=== PATIENT | male | born 1930 | race Caucasian/White ===

== ENCOUNTER 2021-02-14 12:38 | Inpatient (IN) | payer MEDICARE, MEDICAID ==
[~2021-02-14] VITALS: Ht 170.2 cm; Wt 115.0 kg
[~2021-02-14 12:38] MED LIST: epiNEPHrine 0.1mg/ml 10ml syringe ONE
--- NOTE | 2021-02-14 13:02 | NUR ---
PT WAS PLACED ON CPAP FROM EMS, PLACED ON BIPAP IN ER UPON ARRIVAL, FIO2 100%, PT SAMIR WELL
[2021-02-14 13:07] LABS: ABG BASE EXCESS -0.5 mmol/L (-2.0-2.0); ABG HCO3 23.3 mmol/L (22.0-26.0); ABG OXYGEN SATURATION 96.6 % (94-97); ABG PCO2 (T) 35.6 mmHg (35.0-48.0); ABG PO2 (T) 92.1 mmHg (75.0-100.0); ALLEN'S TEST POSITIVE; FCOHb 0.3 % (0.0-3.9); FMetHb 0.3 % (0.0-1.5); TOTAL HEMOGLOBIN 13.7 G/dl (14.0-18.0)
[2021-02-14 13:19] LABS: BASOPHILS % (AUTO) 0.3 % (0-1); EOSINOPHILS % (AUTO) 0 % (0-6); HEMATOCRIT 39.8 % (42.0-52.0); HEMOGLOBIN 13.2 g/dl (14.0-17.9); LYMPHOCYTES # (AUTO) 0.7 X10'3 (1.1-4.8); LYMPHOCYTES % (AUTO) 6.7 % (21-51); MEAN CORPUSCULAR HEMOGLOBIN 28.3 PG (27.0-31.0); MEAN CORPUSCULAR HGB CONC 33.2 g/dL (33.0-36.5); MEAN CORPUSCULAR VOLUME 85.2 FL (78-98); MEAN PLATELET VOLUME 8.2 FL (7.4-10.4); MONOCYTES % (AUTO) 10.3 % (2-12); NEUTROPHILS # (AUTO) 8.4 X10'3 (1.8-7.7); NEUTROPHILS % (AUTO) 82.7 % (42-75); PLATELET COUNT 149 X10'3 (140-440); RED BLOOD COUNT 4.67 X10'6 (4.70-6.10); RED CELL DISTRIBUTION WIDTH 17.2 % (11.5-14.5); WHITE BLOOD COUNT 10.1 X10'3 (4.5-11.0)
--- NOTE | 2021-02-14 13:41 | NUR ---
: SOTERO BUCHANAN [phone]
[2021-02-14 13:42] LABS: C-REACTIVE PROTEIN 6.87 MG/DL (0.0-0.5); MAGNESIUM 2.5 MG/DL (1.5-2.4)
[2021-02-14 13:50] LABS: D-DIMER 2.26 MG/L FEU (0-0.50); PARTIAL THROMBOPLASTIN TIME 28 SECONDS (22-32)
[2021-02-14] MEDS ORDERED: methylPREDNISolone sod succ 125mg/2ml vial IV ONE (14:00)
[2021-02-14 14:21] LABS: ALANINE AMINOTRANSFERASE 43 U/L (12-78); ALBUMIN 3.2 G/DL (3.4-5.0); ALBUMIN/GLOBULIN RATIO 0.7 (1.1-1.5); ALKALINE PHOSPHATASE 69 IU/L (46-116); ANION GAP 16 (8-16); ASPARTATE AMINO TRANSFERASE 125 U/L (10-37); BLOOD UREA NITROGEN 62 MG/DL (7-18); BUN/CREATININE RATIO 28.6 (5.4-32.0); CALCIUM 8.7 MG/DL (8.5-10.1); CHLORIDE 101 MMOL/L (99-107); CREATININE 2.17 MG/DL (0.60-1.10); GLUCOSE 183 MG/DL (70-104); POTASSIUM 4.1 MMOL/L (3.5-5.1); SODIUM 142 MMOL/L (135-145); TOTAL CARBON DIOXIDE 25.1 MMOL/L (24-32); eGFR 29 ML/MIN
[2021-02-14] MEDS ORDERED: enoxaparin 100mg/ml syringe SUBCUT ONE (14:40)
[2021-02-14] MEDS ORDERED: normal saline 1000ML IV soln IVB ONE (14:45)
[2021-02-14] MEDS ORDERED: enoxaparin 80mg/0.8ml syringe SUBCUT SCH ×2 (15:10→20:00)
[2021-02-14] MEDS ORDERED: ATOR40TA71 PO (15:14)
[2021-02-14] MEDS ORDERED: ALBU8.5H17 IH (15:14)
[2021-02-14] MEDS ORDERED: LOSA25TA41 PO (15:14)
[2021-02-14] MEDS ORDERED: CARV6.253 PO (15:14)
[2021-02-14] MEDS ORDERED: BUDE10.2 INH (15:14)
[2021-02-14] MEDS ORDERED: HYDR-3972 PO (15:14)
[2021-02-14] MEDS ORDERED: FURO40TA4 PO (15:14)
[2021-02-14] MEDS ORDERED: LEVO150T PO (15:14)
[2021-02-14 15:40] LABS: COLOR,URINE YELLOW (Yellow); GLUCOSE, URINE NEGATIVE (Neg); KETONES,URINE NEGATIVE (Neg); NITRITES, URINE NEGATIVE (Neg); OCCULT BLOOD,URINE LARGE (Neg); PROTEIN,URINE 100 mg/dl (Neg); UA COLLECTION TYPE FOLEY CATH
[2021-02-14] MEDS ORDERED: potassium Cl 40MEQ/1/2NS 520ml 520 ML IV PRN ×2 (15:40)
[2021-02-14] MEDS ORDERED: acetaminophen 325mg tablet PO PRN ×2 (15:40)
[2021-02-14] MEDS ORDERED: ondansetron/PF 4mg/2ml inj IV PRN (15:40)
[2021-02-14] MEDS ORDERED: morphine 2 MG/ML inj. syringe IV PRN (15:40)
[2021-02-14] MEDS ORDERED: LIDOcaine 2% 10ml TOPICAL JELLY (Urojet) TP ONE (15:40)
[2021-02-14] MEDS ORDERED: morphine 4 MG/ML inj SYRINge IV PRN (15:40)
[2021-02-14] MEDS ORDERED: potassium Cl 20 mEq SR tablet PO PRN ×2 (15:40)
[2021-02-14] MEDS ORDERED: potassium Cl 40MEQ/250ML bag 270 ML IV PRN ×2 (15:40)
[2021-02-14 15:41] LABS: CLARITY,URINE SLIGHTLY CLOUDY (Clear); LEUKOCYTE ESTERASE ,URINE NEGATIVE (Neg); UROBILINOGEN,URINE 0.2 E.U/dL (0.2-1.0)
[2021-02-14 15:47] LABS: BACTERIA,URINE FEW /HPF (Neg); MUCUS STRANDS NONE SEEN /LPF (Neg); RBC,URINE 0-2 /HPF (0-2); SQUAMOUS EPITHELIAL CELL,UR FEW /LPF (FEW); WBC,URINE 0-4 /HPF (0-4)
[2021-02-14 15:49] LABS: HYALINE CASTS 0-3 /LPF (NEGATIVE)
[2021-02-14] MEDS: normal saline 1000ml 1,000 ML IV SCH ×2 (15:55→19:22)
[2021-02-14 16:01] LABS: ALBUMIN 2.9 G/DL (3.4-5.0); ANION GAP 14 (8-16); BLOOD UREA NITROGEN 60 MG/DL (7-18); BUN/CREATININE RATIO 28.6 (5.4-32.0); CALCIUM 8.3 MG/DL (8.5-10.1); CHLORIDE 103 MMOL/L (99-107); GLUCOSE 173 MG/DL (70-104); POTASSIUM 4.2 MMOL/L (3.5-5.1); SODIUM 143 MMOL/L (135-145); TOTAL CARBON DIOXIDE 25.7 MMOL/L (24-32); eGFR 30 ML/MIN
--- NOTE | 2021-02-14 18:51 | NUR ---
Patient is resting comfortably on gurney, Bipap on. I will continue to monitor.
[2021-02-14] MEDS: dexamethasone inj 6 MG in dextrose 5%-water 100 ML IV SCH (19:20)
[2021-02-14] MEDS: docusate sod 100mg capsule PO SCH (20:00)
[2021-02-14] MEDS ORDERED: enoxaparin 100mg/ml syringe SUBCUT SCH (20:00)
[2021-02-14] MEDS: enoxaparin 80mg/0.8ml syringe SUBCUT SCH (20:18)
[2021-02-14] MEDS: famotidine/PF 10 mg/ml inj IV SCH (20:18)
[2021-02-14] MEDS: sennosides/docusate sodium tablet PO SCH (20:19)
--- NOTE | 2021-02-14 20:19 | NUR ---
Did not give colace of senna po as the patient is on Bipap.
--- NOTE | 2021-02-14 22:42 | NUR ---
Patient sleeping comfortably on juan joserney, I just readjusted his Bipap mask.
[2021-02-15] VITALS (12 sets, daily range): BP systolic 93–129; BP diastolic 51–77
[2021-02-15 01:27] LABS: ALANINE AMINOTRANSFERASE 35 U/L (12-78); ALBUMIN 2.4 G/DL (3.4-5.0); ALBUMIN/GLOBULIN RATIO 0.6 (1.1-1.5); ALKALINE PHOSPHATASE 55 IU/L (46-116); ANION GAP 12 (8-16); ASPARTATE AMINO TRANSFERASE 133 U/L (10-37); BILIRUBIN,TOTAL 0.7 MG/DL (0.1-1.0); BLOOD UREA NITROGEN 61 MG/DL (7-18); BUN/CREATININE RATIO 34.9 (5.4-32.0); CHLORIDE 106 MMOL/L (99-107); CREATININE 1.75 MG/DL (0.60-1.10); GLUCOSE 233 MG/DL (70-104); POTASSIUM 3.9 MMOL/L (3.5-5.1); SODIUM 144 MMOL/L (135-145); TOTAL CARBON DIOXIDE 26.4 MMOL/L (24-32); TOTAL PROTEIN 6.5 G/DL (6.4-8.2); eGFR 37 ML/MIN
[2021-02-15 01:43] LABS: C-REACTIVE PROTEIN 10.28 MG/DL (0.0-0.5); MAGNESIUM 2.4 MG/DL (1.5-2.4); PHOSPHORUS 5.6 MG/DL (2.3-4.5)
[2021-02-15 02:36] LABS: BASOPHILS % (AUTO) 0.2 % (0-1); EOSINOPHILS % (AUTO) 0 % (0-6); HEMATOCRIT 37.4 % (42.0-52.0); HEMOGLOBIN 12.1 g/dl (14.0-17.9); LYMPHOCYTES % (AUTO) 6.5 % (21-51); MEAN CORPUSCULAR HEMOGLOBIN 27.6 PG (27.0-31.0); MEAN CORPUSCULAR HGB CONC 32.4 g/dL (33.0-36.5); MEAN CORPUSCULAR VOLUME 85.2 FL (78-98); MEAN PLATELET VOLUME 8.2 FL (7.4-10.4); MONOCYTES # (AUTO) 0.7 X10'3 (0-0.9); MONOCYTES % (AUTO) 4.4 % (2-12); NEUTROPHILS # (AUTO) 14.1 X10'3 (1.8-7.7); NEUTROPHILS % (AUTO) 88.9 % (42-75); PLATELET COUNT 165 X10'3 (140-440); RED BLOOD COUNT 4.39 X10'6 (4.70-6.10); RED CELL DISTRIBUTION WIDTH 17.3 % (11.5-14.5); WHITE BLOOD COUNT 15.9 X10'3 (4.5-11.0)
[2021-02-15 02:47] LABS: D-DIMER 1.25 MG/L FEU (0-0.50)
--- NOTE | 2021-02-15 03:15 | NUR ---
Dr. Vega came back to me and let me know the patient was under the Critical Care service. I then cld Dr. Sepulveda and advised of Troponin 187, he aknowledged the value and advised no further Troponin's needed.
[2021-02-15] MEDS: docusate sod 100mg capsule PO SCH ×3 (07:23→20:00)
[2021-02-15] MEDS: enoxaparin 80mg/0.8ml syringe SUBCUT SCH ×2 (07:24→20:47)
[2021-02-15] MEDS: dexamethasone inj 6 MG in dextrose 5%-water 100 ML IV SCH ×2 (07:24→20:47)
[2021-02-15] MEDS: famotidine/PF 10 mg/ml inj IV SCH ×2 (07:24→20:47)
[2021-02-15] MEDS: normal saline 1000ml 1,000 ML IV SCH (07:25)
--- NOTE | 2021-02-15 07:36 | NUR ---
Patient failed the PO challange, coughed and gagged on sip of water.
--- NOTE | 2021-02-15 08:53 | NUR ---
Daughter cld and was updated on patient's condition.
--- NOTE | 2021-02-15 11:36 | NUR ---
Noted RN documented "Patient failed the PO challenge, coughed and gagged on sip of water" however pt continues with a regular diet. Recommend BSS with ST to determine appropriateness of PO diet at this time. Pt currently on BiPAP per primer charger. Addendum: 02/15/21 at [address] Amended: Links added.
--- NOTE | 2021-02-15 12:37 | NUR ---
MD notified patient's latest troponin level as well as his HR, which trends from mid 40's to low 60's. No new orders received.
--- NOTE | 2021-02-15 12:38 | NUR ---
MD order for patient to be place off Cipap and started on NC. Patient placed on 15L NC by RT and saturated declined to low 80's. Cipap restarted back at 55% FI02 and he is tolerating well sating at low 90's. Does not appear to be in any distress and is compliant with his mask. Addendum: 02/15/21 at 1538 by Ele Hoover RN Cpap Addendum: 02/15/21 at 1604 by Ele Hoover RN Spoke with patient's daughter Shilpa to give her and update on her father's condition. When inquiring about code status, family wishes for him to remain a full code.
[2021-02-15] MEDS ORDERED: REMDESIVIR 200 MG in NS 100ml IVPB Loading dose IV ONE (12:40)
[2021-02-15 17:05] LABS: TOTAL PROTEIN,URINE RANDOM 92.4 MG/DL
[2021-02-15 17:06] LABS: SODIUM,URINE RANDOM < 15 MEQ/L
[2021-02-15 17:13] LABS: COLOR,URINE YELLOW (Yellow); UA COLLECTION TYPE CLN CATCH MIDSTREAM
[2021-02-15 17:14] LABS: CLARITY,URINE SLIGHTLY CLOUDY (Clear); GLUCOSE, URINE NEGATIVE (Neg); KETONES,URINE 15 mg/dl (Neg); LEUKOCYTE ESTERASE ,URINE NEGATIVE (Neg); NITRITES, URINE NEGATIVE (Neg); OCCULT BLOOD,URINE LARGE (Neg); PROTEIN,URINE 30 mg/dl (Neg); UROBILINOGEN,URINE 0.2 E.U/dL (0.2-1.0)
[2021-02-15 18:08] LABS: AMORPHOUS URATES 2+; BACTERIA,URINE FEW /HPF (Neg); MUCUS STRANDS FEW /LPF (Neg); SQUAMOUS EPITHELIAL CELL,UR FEW /LPF (FEW); WBC,URINE 0-4 /HPF (0-4)
[2021-02-15 19:38] LABS: UA EOSINOPHILS NO EOS /HPF
[2021-02-15] MEDS: sennosides/docusate sodium tablet PO SCH (21:00)
[2021-02-16] VITALS (22 sets, daily range): BP systolic 87–123; BP diastolic 50–77
[2021-02-16] MEDS ORDERED: dexmedetomidin/NS 400mcg/100ml 100 ML IV SCH (06:10)
[2021-02-16] MEDS: famotidine/PF 10 mg/ml inj IV SCH ×2 (07:30→20:32)
[2021-02-16] MEDS: enoxaparin 80mg/0.8ml syringe SUBCUT SCH ×2 (07:30→20:32)
[2021-02-16] MEDS: REMDESIVIR INJ 100 MG in normal saline 100ml IV soln 80 ML IV SCH (07:30)
[2021-02-16] MEDS: dexamethasone inj 6 MG in dextrose 5%-water 100 ML IV SCH ×2 (07:30→20:31)
[2021-02-16] MEDS: docusate sod 100mg capsule PO SCH ×2 (07:31→20:00)
[2021-02-16] MEDS ORDERED: glucagon, human recombinant 1mg kit SUBCUT PRN (08:45)
[2021-02-16] MEDS ORDERED: dextrose 50%-water 50ml dispensing syringe IV PRN ×2 (08:45)
[2021-02-16] MEDS ORDERED: dextrose ORAL solution 15 GM/59 ML bottle PO PRN ×2 (08:45)
[2021-02-16] MEDS ORDERED: MESSAGE TO PHARMACY PO ONE (08:45)
[2021-02-16 09:00] LABS: BASOPHILS % (AUTO) 0.2 % (0-1); EOSINOPHILS % (AUTO) 0 % (0-6); HEMATOCRIT 35.9 % (42.0-52.0); HEMOGLOBIN 11.9 g/dl (14.0-17.9); LYMPHOCYTES # (AUTO) 0.6 X10'3 (1.1-4.8); MEAN CORPUSCULAR VOLUME 84.7 FL (78-98); MEAN PLATELET VOLUME 8.3 FL (7.4-10.4); MONOCYTES # (AUTO) 0.7 X10'3 (0-0.9); MONOCYTES % (AUTO) 4.9 % (2-12); NEUTROPHILS # (AUTO) 13.6 X10'3 (1.8-7.7); NEUTROPHILS % (AUTO) 90.9 % (42-75); PLATELET COUNT 180 X10'3 (140-440); RED BLOOD COUNT 4.24 X10'6 (4.70-6.10); RED CELL DISTRIBUTION WIDTH 17.6 % (11.5-14.5)
[2021-02-16 09:12] LABS: D-DIMER 1.27 MG/L FEU (0-0.50)
[2021-02-16 09:20] LABS: ALANINE AMINOTRANSFERASE 34 U/L (12-78); ALBUMIN 2.1 G/DL (3.4-5.0); ALBUMIN/GLOBULIN RATIO 0.5 (1.1-1.5); ALKALINE PHOSPHATASE 54 IU/L (46-116); ANION GAP 11 (8-16); ASPARTATE AMINO TRANSFERASE 116 U/L (10-37); BILIRUBIN,TOTAL 0.7 MG/DL (0.1-1.0); BLOOD UREA NITROGEN 57 MG/DL (7-18); BUN/CREATININE RATIO 41.9 (5.4-32.0); C-REACTIVE PROTEIN 8.45 MG/DL (0.0-0.5); CALCIUM 8.1 MG/DL (8.5-10.1); CHLORIDE 110 MMOL/L (99-107); CREATININE 1.36 MG/DL (0.60-1.10); GLUCOSE 237 MG/DL (70-104); MAGNESIUM 2.7 MG/DL (1.5-2.4); PHOSPHORUS 2.7 MG/DL (2.3-4.5); POTASSIUM 3.6 MMOL/L (3.5-5.1); SODIUM 145 MMOL/L (135-145); TOTAL CARBON DIOXIDE 24.2 MMOL/L (24-32); TOTAL PROTEIN 6.2 G/DL (6.4-8.2); eGFR 49 ML/MIN
[2021-02-16] MEDS: insulin Lispro (HumaLOG) vial - multi-dose SQ SCH ×2 (14:08→20:23)
--- NOTE | 2021-02-16 14:48 | NUR ---
Md notified of EKG changes, Afib rate fluctuating from 101-140's. No history of Afib. Orders to replace k for a level of 4.5 were given by .
[2021-02-16] MEDS ORDERED: potassium Cl 40MEQ/1/2NS 520ml 520 ML IV PRN (15:15)
[2021-02-16] MEDS ORDERED: potassium Cl 40MEQ/250ML bag 250 ML IV PRN (15:15)
[2021-02-16] MEDS ORDERED: potassium CL 10mEq/100ml bag 100 ML IV PRN (15:15)
[2021-02-16] MEDS ORDERED: potassium Cl 40MEQ/250ML bag 270 ML IV PRN (15:23)
[2021-02-16] MEDS ORDERED: potassium Cl 20 mEq/100mL bag IV ONE (15:25)
[2021-02-16] MEDS ORDERED: amiodarone 150mg/dext, iso-os 100 ML IV ONE (16:05)
[2021-02-16] MEDS: amiodarone/D5 360MG/200ML BAG 200 ML IV SCH ×2 (16:45→22:09)
--- NOTE | 2021-02-16 17:18 | NUR ---
While patient was working with PT he "yanked" his cpap machine and broke the velcro straps. He is now on non rebreather which was placed by RT and sats are 95-97% on 15L. Amiodarone has been started and his hr is 80's to low 100's.
[2021-02-16] MEDS: potassium Cl 20mEq/100mL bag 100 ML IV PRN ×2 (17:54→22:04)
--- NOTE | 2021-02-16 18:20 | NUR ---
Pt very restless and confused, ripping off Leads, pulling on joe and PICC line. Heart rate around 120s even with amiodaron drip. Called Dr. Buenrostro, he ordered STAT ABG and Precedex.
[2021-02-16 19:36] LABS: ABG BASE EXCESS 3.2 mmol/L (-2.0-2.0); ABG HCO3 27.3 mmol/L (22.0-26.0); ABG OXYGEN SATURATION 90.7 % (94-97); ABG PCO2 (T) 39.4 mmHg (35.0-48.0); ALLEN'S TEST POSITIVE; FCOHb 0.3 % (0.0-3.9); FMetHb 0.3 % (0.0-1.5); FO2Hb 90.2 % (94-97); PATIENT TEMPERATURE 36.8; TOTAL HEMOGLOBIN 12.7 G/dl (14.0-18.0)
[2021-02-16] MEDS: dexmedetomidin/NS 400mcg/100ml 100 ML IV SCH ×2 (19:40→22:03)
--- NOTE | 2021-02-16 20:00 | NUR ---
Pt more relaxed and calm. Heart Rate now in the 60s. Amiodaron infusion turned off.
--- NOTE | 2021-02-16 20:00 | NUR ---
Pt still very confused and trying to pull lines, called, restraints ordered.
[2021-02-16] MEDS: insulin glargine (Lantus) pen - multi-dose SQ SCH (20:23)
[2021-02-16] MEDS: normal saline 1000ml 1,000 ML IV SCH (20:32)
[2021-02-16] MEDS: sennosides/docusate sodium tablet PO SCH (20:42)
--- NOTE | 2021-02-16 23:00 | NUR ---
Pt started to have Peaked T waves. Potassium replacement stopped. Redrew Potassium, level came back at 4.8. Will not give the rest of potassium
[2021-02-17] VITALS (23 sets, daily range): BP systolic 77–126; BP diastolic 52–88
[2021-02-17] MEDS: dexmedetomidin/NS 400mcg/100ml 100 ML IV SCH ×2 (02:18→20:31)
[2021-02-17] MEDS: normal saline 1000ml 1,000 ML IV SCH (02:38)
[2021-02-17 03:09] LABS: HEMOGLOBIN 11.1 g/dl (14.0-17.9); MEAN CORPUSCULAR VOLUME 84.3 FL (78-98); MEAN PLATELET VOLUME 8.1 FL (7.4-10.4)
[2021-02-17 03:11] LABS: BASOPHILS % (AUTO) 0 % (0-1); EOSINOPHILS % (AUTO) 0 % (0-6); HEMATOCRIT 33.6 % (42.0-52.0); LYMPHOCYTES # (AUTO) 0.4 X10'3 (1.1-4.8); LYMPHOCYTES % (AUTO) 3.4 % (21-51); MEAN CORPUSCULAR HEMOGLOBIN 27.9 PG (27.0-31.0); MEAN CORPUSCULAR HGB CONC 33.1 g/dL (33.0-36.5); MONOCYTES # (AUTO) 0.6 X10'3 (0-0.9); MONOCYTES % (AUTO) 5.4 % (2-12); NEUTROPHILS # (AUTO) 10.5 X10'3 (1.8-7.7); NEUTROPHILS % (AUTO) 91.2 % (42-75); PLATELET COUNT 196 X10'3 (140-440); RED BLOOD COUNT 3.99 X10'6 (4.70-6.10); RED CELL DISTRIBUTION WIDTH 17.5 % (11.5-14.5); WHITE BLOOD COUNT 11.5 X10'3 (4.5-11.0)
[2021-02-17 03:18] LABS: D-DIMER 0.95 MG/L FEU (0-0.50)
[2021-02-17 03:37] LABS: ALANINE AMINOTRANSFERASE 32 U/L (12-78); ALBUMIN/GLOBULIN RATIO 0.5 (1.1-1.5); ALKALINE PHOSPHATASE 55 IU/L (46-116); ANION GAP 5 (8-16); ASPARTATE AMINO TRANSFERASE 77 U/L (10-37); BILIRUBIN,TOTAL 0.6 MG/DL (0.1-1.0); BLOOD UREA NITROGEN 55 MG/DL (7-18); BUN/CREATININE RATIO 42.3 (5.4-32.0); CALCIUM 8.1 MG/DL (8.5-10.1); CHLORIDE 114 MMOL/L (99-107); GLUCOSE 240 MG/DL (70-104); MAGNESIUM 2.6 MG/DL (1.5-2.4); PHOSPHORUS 2.1 MG/DL (2.3-4.5); POTASSIUM 4.3 MMOL/L (3.5-5.1); SODIUM 149 MMOL/L (135-145); TOTAL CARBON DIOXIDE 29.8 MMOL/L (24-32); TOTAL PROTEIN 5.8 G/DL (6.4-8.2); eGFR 52 ML/MIN
[2021-02-17] MEDS: amiodarone/D5 360MG/200ML BAG 200 ML IV SCH ×4 (04:13→21:59)
--- NOTE | 2021-02-17 05:12 | NUR ---
Pt progressively getting more sleepy, not able to follow commands. Pupils equal and reactive, no facial drooping. Blood sugar 249, ABG done and it was not changed from ABG at 1999. Precedex now off, will continue to be off the rest of shift to see if pt starts to follow commands.
[2021-02-17] MEDS: REMDESIVIR INJ 100 MG in normal saline 100ml IV soln 80 ML IV SCH (07:50)
[2021-02-17] MEDS: famotidine/PF 10 mg/ml inj IV SCH ×2 (07:50→21:26)
[2021-02-17] MEDS: enoxaparin 80mg/0.8ml syringe SUBCUT SCH ×2 (07:50→21:26)
[2021-02-17] MEDS: docusate sod 100mg capsule PO SCH ×2 (07:50→20:00)
[2021-02-17] MEDS: dexamethasone inj 6 MG in dextrose 5%-water 100 ML IV SCH ×2 (07:50→21:26)
[2021-02-17] MEDS: insulin Lispro (HumaLOG) vial - multi-dose SQ SCH ×2 (09:25→12:32)
--- NOTE | 2021-02-17 09:58 | NUR ---
Patient placed on high fowlers on NC 15L to set up for breakfast at 0800. He is currently on 15 L NC and tolerating it well. Sats are 91-92%. He eat 75% of his breakfast. Addendum: 02/17/21 at 1022 by Ele Hoover RN Patient off restraints and following commands.
--- NOTE | 2021-02-17 10:09 | NUR ---
Amiodarone restarted patient with Afib RVR.
--- NOTE | 2021-02-17 10:25 | NUR ---
MD notified patient with non productive cough and HR spike.
[2021-02-17] MEDS ORDERED: guaiFENesin 200 MG/10 ML oral syrup UD cup PO PRN (11:05)
--- NOTE | 2021-02-17 11:31 | NUR ---
Patient was doing well on 15 L NC off restraints when he became agitated and tried getting out of bed, pulled his mask off. He is back on restraints. Vitals stable, in no distress.
--- NOTE | 2021-02-17 14:43 | NUR ---
Initial: Pt admit for ALON, acute hypoxemic respiratory failure, and COVID PNA. Pt s/p BSS with ST recs pureed food with thin liquids as pt with difficulty chewing. Pt documented with mostly 0% PO intake though with 25% PO intake at lunch 02/16 and 75% PO intake at breakfast this morning. TC with RN who reports pt was tolerating nasal cannula this morning and was a little more oriented and was able to eat well this morning following encouragement in PO intake, however pt became agitated with increased oxygen requirements so RN held lunch this afternoon. project analyst d/w placing an NG tube during critical care rounds however MD declined at this time. MD was agreeable to start pt on ONS. Pt would benefit from Ensure Enlive TID to optimize PO intake, though will f/u tomorrow to determine appropriateness of ONS. IF pt continues with poor PO intake recommend nutrition support to meet estimated nutrient needs. Noted pt with A1c 7.9% with no PMH DM, confirmed by RN. Pt not appropriate for DM education at this time given A/O x 1 and confused, though pt would need official DM dx by physician prior to RD providing DM education. LBM 02/15, receiving routine bowel care. Will continue to follow closely. Recommendations: 1) Continue pureed CHO controlled diet with thin liquids per ST recs; liberalize to regular diet if PO intake remains poor 2) Ensure Enlive TIDWM if pt able to tolerate PO intake and with poor PO intake; otherwise consider Ensure High Protein or Glucerna 3) Encourage PO intake 4) IF pt unable to tolerate PO intake or PO intake does not improve, consider EN to meet estimated nutrient needs 5) Routine bowel care 6) Scaled weight this admit; weekly scaled weights thereafter 7) DM education once appropriate following DM dx by physician, A1c 7.9% with no PMH DM Addendum: 02/17/21 at [address] Amended: Links added.
[2021-02-17] MEDS: sennosides/docusate sodium tablet PO SCH (21:00)
[2021-02-17] MEDS: insulin glargine (Lantus) pen - multi-dose SQ SCH (21:12)
[2021-02-17] MEDS ORDERED: furosemide 40mg/4ml inj IV ONE (21:20)
[2021-02-17] MEDS ORDERED: metoprolol tartrate 1mg/ml inj IV ONE (22:40)
[2021-02-17] MEDS ORDERED: acetaminophen 650mg rectal suppository RC ONE (22:40)
[2021-02-18] VITALS (24 sets, daily range): BP systolic 89–134; BP diastolic 51–82
[2021-02-18 03:02] LABS: D-DIMER 0.87 MG/L FEU (0-0.50)
[2021-02-18 03:28] LABS: BASOPHILS % (AUTO) 0.1 % (0-1); EOSINOPHILS % (AUTO) 0 % (0-6); HEMATOCRIT 28.1 % (42.0-52.0); HEMOGLOBIN 9.3 g/dl (14.0-17.9); LYMPHOCYTES # (AUTO) 0.3 X10'3 (1.1-4.8); LYMPHOCYTES % (AUTO) 1.7 % (21-51); MEAN CORPUSCULAR HEMOGLOBIN 27.9 PG (27.0-31.0); MEAN CORPUSCULAR HGB CONC 33.2 g/dL (33.0-36.5); MEAN CORPUSCULAR VOLUME 83.9 FL (78-98); MEAN PLATELET VOLUME 8.6 FL (7.4-10.4); MONOCYTES # (AUTO) 0.9 X10'3 (0-0.9); MONOCYTES % (AUTO) 5.3 % (2-12); NEUTROPHILS # (AUTO) 15.5 X10'3 (1.8-7.7); NEUTROPHILS % (AUTO) 92.9 % (42-75); PLATELET COUNT 211 X10'3 (140-440); RED BLOOD COUNT 3.35 X10'6 (4.70-6.10); RED CELL DISTRIBUTION WIDTH 17.3 % (11.5-14.5); WHITE BLOOD COUNT 16.7 X10'3 (4.5-11.0)
[2021-02-18 03:30] LABS: ALANINE AMINOTRANSFERASE 33 U/L (12-78); ALBUMIN/GLOBULIN RATIO 0.6 (1.1-1.5); ALKALINE PHOSPHATASE 54 IU/L (46-116); ANION GAP 11 (8-16); ASPARTATE AMINO TRANSFERASE 57 U/L (10-37); BILIRUBIN,TOTAL 0.8 MG/DL (0.1-1.0); BLOOD UREA NITROGEN 65 MG/DL (7-18); C-REACTIVE PROTEIN 3.29 MG/DL (0.0-0.5); CALCIUM 8.1 MG/DL (8.5-10.1); CHLORIDE 114 MMOL/L (99-107); CREATININE 1.71 MG/DL (0.60-1.10); GLUCOSE 231 MG/DL (70-104); MAGNESIUM 2.5 MG/DL (1.5-2.4); PHOSPHORUS 2.2 MG/DL (2.3-4.5); POTASSIUM 4.1 MMOL/L (3.5-5.1); SODIUM 152 MMOL/L (135-145); TOTAL CARBON DIOXIDE 27.2 MMOL/L (24-32); TOTAL PROTEIN 5.4 G/DL (6.4-8.2); eGFR 38 ML/MIN
[2021-02-18 05:42] LABS: COLOR,URINE YELLOW (Yellow); UA COLLECTION TYPE CLN CATCH MIDSTREAM
[2021-02-18 05:43] LABS: CLARITY,URINE CLOUDY (Clear); GLUCOSE, URINE NEGATIVE (Neg); KETONES,URINE NEGATIVE (Neg); NITRITES, URINE NEGATIVE (Neg); OCCULT BLOOD,URINE LARGE (Neg); PH,URINE 5.5 (4.8-8.0); PROTEIN,URINE 100 mg/dl (Neg)
[2021-02-18 05:44] LABS: LEUKOCYTE ESTERASE ,URINE TRACE (Neg); UROBILINOGEN,URINE 0.2 E.U/dL (0.2-1.0)
[2021-02-18 05:49] LABS: BACTERIA,URINE 3+ /HPF (Neg); MUCUS STRANDS MODERATE /LPF (Neg); RBC,URINE TNTC /HPF (0-2); SQUAMOUS EPITHELIAL CELL,UR FEW /LPF (FEW)
[2021-02-18] MEDS: dexmedetomidin/NS 400mcg/100ml 100 ML IV SCH ×3 (05:54→20:31)
[2021-02-18] MEDS: amiodarone/D5 360MG/200ML BAG 200 ML IV SCH ×2 (05:55→15:56)
[2021-02-18] MEDS ORDERED: NORepinephrine 8mg/ 250ml NS 250 ML IV ONE (06:26)
[2021-02-18] MEDS: NORepinephrine inj. 8 MG in dextrose 5%-water 242 ML IV SCH ×2 (07:53→20:32)
[2021-02-18] MEDS: famotidine/PF 10 mg/ml inj IV SCH ×2 (07:55→20:30)
[2021-02-18] MEDS: enoxaparin 80mg/0.8ml syringe SUBCUT SCH ×2 (07:58→20:32)
[2021-02-18] MEDS: docusate sod 100mg capsule PO SCH ×2 (08:00→20:00)
[2021-02-18] MEDS: REMDESIVIR INJ 100 MG in normal saline 100ml IV soln 80 ML IV SCH (08:01)
[2021-02-18] MEDS: dexamethasone inj 6 MG in dextrose 5%-water 100 ML IV SCH ×2 (08:01→20:00)
[2021-02-18] MEDS: insulin Lispro (HumaLOG) vial - multi-dose SQ SCH ×3 (08:17→21:06)
--- NOTE | 2021-02-18 12:39 | NUR ---
F/u: Noted pt documented with 0% all meals following last RD note 02/17. TC to RN who reports pt more lethargic so very likely unable to tolerate PO intake. Noted pt documented as confused and A/O x 0 per physical assessment. ONS not appropriate at this time. RN reports will d/w MD regarding possible diet change to NPO. D/w RN recommendation for nutrition support given poor PO intake, now 4 days since admit. Recommend EN IF able to achieve NG access given current respiratory status, otherwise pt would benefit from TPN, d/w RN. RN reports low bowel sounds today. LBM 02/16, routine bowel care unable to be given at this time per EMR. Will continue to follow closely. Addendum: 02/18/21 at [address] Amended: Links added.
[2021-02-18 13:42] LABS: CLARITY,URINE CLOUDY (Clear); COLOR,URINE YELLOW (Yellow); GLUCOSE, URINE NEGATIVE (Neg); KETONES,URINE NEGATIVE (Neg); OCCULT BLOOD,URINE LARGE (Neg); PROTEIN,URINE 30 mg/dl (Neg); UA COLLECTION TYPE CLN CATCH MIDSTREAM
[2021-02-18 13:43] LABS: LEUKOCYTE ESTERASE ,URINE NEGATIVE (Neg); NITRITES, URINE NEGATIVE (Neg)
[2021-02-18 13:51] LABS: BACTERIA,URINE 3+ /HPF (Neg); RBC,URINE 50-100 /HPF (0-2); SQUAMOUS EPITHELIAL CELL,UR FEW /LPF (FEW)
[2021-02-18 13:52] LABS: MUCUS STRANDS FEW /LPF (Neg); TRANSITIONAL EPI CELLS,URINE FEW /HPF
[2021-02-18 15:00] LABS: UA EOSINOPHILS NO EOS /HPF
[2021-02-18] MEDS ORDERED: ondansetron 4mg rapidly disintigrating tab PO PRN (15:20)
[2021-02-18] MEDS: dexmedetomidine/D5W 100mL 100 ML IV SCH (20:58)
[2021-02-18] MEDS: sennosides/docusate sodium tablet PO SCH (21:00)
[2021-02-18] MEDS: insulin glargine (Lantus) pen - multi-dose SQ SCH (21:06)
[2021-02-19] VITALS (14 sets, daily range): BP systolic 65–156; BP diastolic 29–86
[2021-02-19] MEDS: dexmedetomidine/D5W 100mL 100 ML IV SCH ×3 (00:57→11:33)
[2021-02-19] MEDS ORDERED: succinylcholine 20mg/ml inj IV ONE (01:39)
[2021-02-19] MEDS ORDERED: NORepinephrine 8mg/ 250ml NS 250 ML IV ONE ×2 (01:43→11:13)
[2021-02-19 02:00] LABS: ABG BASE EXCESS -3.6 mmol/L (-2.0-2.0); ABG HCO3 19.6 mmol/L (22.0-26.0); ABG OXYGEN SATURATION 87.8 % (94-97); ABG PCO2 (T) 28.9 mmHg (35.0-48.0); ABG PO2 (T) 55.1 mmHg (75.0-100.0); ALLEN'S TEST Modified; FCOHb 0.2 % (0.0-3.9); FMetHb 0.6 % (0.0-1.5); FO2Hb 87.1 % (94-97); TOTAL HEMOGLOBIN 9.7 G/dl (14.0-18.0)
[2021-02-19 02:21] LABS: BASOPHILS # (AUTO) 0.1 X10'3 (0-0.2); EOSINOPHILS % (AUTO) 0 % (0-6); HEMOGLOBIN 8.8 g/dl (14.0-17.9); MONOCYTES # (AUTO) 1.5 X10'3 (0-0.9)
[2021-02-19 02:23] LABS: BASOPHILS % (AUTO) 0.2 % (0-1); HEMATOCRIT 27.3 % (42.0-52.0); LYMPHOCYTES # (AUTO) 0.9 X10'3 (1.1-4.8); LYMPHOCYTES % (AUTO) 3.3 % (21-51); MEAN CORPUSCULAR HEMOGLOBIN 27.4 PG (27.0-31.0); MEAN CORPUSCULAR HGB CONC 32.3 g/dL (33.0-36.5); MEAN CORPUSCULAR VOLUME 84.9 FL (78-98); MEAN PLATELET VOLUME 8.4 FL (7.4-10.4); MONOCYTES % (AUTO) 5.6 % (2-12); NEUTROPHILS # (AUTO) 24.4 X10'3 (1.8-7.7); NEUTROPHILS % (AUTO) 90.9 % (42-75); PLATELET COUNT 268 X10'3 (140-440); RED BLOOD COUNT 3.21 X10'6 (4.70-6.10)
[2021-02-19 02:30] LABS: D-DIMER 0.94 MG/L FEU (0-0.50)
[2021-02-19 02:40] LABS: WHITE BLOOD COUNT 26.9 X10'3 (4.5-11.0)
[2021-02-19] MEDS: amiodarone/D5 360MG/200ML BAG 200 ML IV SCH (03:17)
[2021-02-19 03:29] LABS: ALANINE AMINOTRANSFERASE 37 U/L (12-78); ALBUMIN/GLOBULIN RATIO 0.6 (1.1-1.5); ALKALINE PHOSPHATASE 75 IU/L (46-116); ANION GAP 18 (8-16); ASPARTATE AMINO TRANSFERASE 41 U/L (10-37); BILIRUBIN,TOTAL 0.7 MG/DL (0.1-1.0); BLOOD UREA NITROGEN 84 MG/DL (7-18); BUN/CREATININE RATIO 29.1 (5.4-32.0); C-REACTIVE PROTEIN 8.65 MG/DL (0.0-0.5); CALCIUM 7.9 MG/DL (8.5-10.1); CHLORIDE 114 MMOL/L (99-107); CREATININE 2.89 MG/DL (0.60-1.10); GLUCOSE 206 MG/DL (70-104); MAGNESIUM 2.6 MG/DL (1.5-2.4); PHOSPHORUS 3.4 MG/DL (2.3-4.5); POTASSIUM 4.5 MMOL/L (3.5-5.1); SODIUM 153 MMOL/L (135-145); TOTAL CARBON DIOXIDE 21.5 MMOL/L (24-32); TOTAL PROTEIN 5.6 G/DL (6.4-8.2); eGFR 21 ML/MIN
[2021-02-19] MEDS: NORepinephrine inj. 8 MG in dextrose 5%-water 242 ML IV SCH (03:30)
[2021-02-19] MEDS ORDERED: vancomycin inj 1,750 MG in normal saline 500ml IV soln 350 ML IV ONE (03:35)
[2021-02-19 05:04] LABS: NUCLEATED RED BLOOD CELLS 2 /100WBC (0-0); TOTAL CELLS COUNTED 100
[2021-02-19 05:14] LABS: PLATELET ESTIMATE NORMAL
[2021-02-19 05:15] LABS: BURR CELLS 2+
[2021-02-19] MEDS ORDERED: NORepinephrine 8mg/ 250ml NS 250 ML IV SCH (07:25)
[2021-02-19] MEDS ORDERED: NORepinephrine inj. 8 MG in dextrose 5%-water 242 ML IV SCH (07:35)
[2021-02-19] MEDS: docusate sod 100mg capsule PO SCH (08:00)
[2021-02-19] MEDS ORDERED: cefepime 1GM in D5W 50mL 50 ML IV SCH (08:00)
[2021-02-19] MEDS: dexamethasone inj 6 MG in dextrose 5%-water 100 ML IV SCH (10:20)
[2021-02-19] MEDS: famotidine/PF 10 mg/ml inj IV SCH (10:20)
[2021-02-19] MEDS: REMDESIVIR INJ 100 MG in normal saline 100ml IV soln 80 ML IV SCH (10:23)
[2021-02-19] MEDS: enoxaparin 80mg/0.8ml syringe SUBCUT SCH (10:25)
[2021-02-19] MEDS ORDERED: normal saline 1000ml 1,000 ML IVB ONE (10:45)
[2021-02-19] MEDS ORDERED: normal saline 1000ml 1,000 ML IV SCH (10:45)
--- NOTE | 2021-02-19 10:46 | NUR ---
notified of patients vital signs. BP map 45 with 0.999 Levo. Addendum: 02/19/21 at 1739 by Ele Hoover RN 0.99
--- NOTE | 2021-02-19 10:47 | NUR ---
Shilpa was called with update on patient's status. She is requesting for his synoptic meteorologist to be notified.
[2021-02-19] MEDS: WATER IV SCH ×2 (11:15→12:30)
[2021-02-19] MEDS: DEXTROSE 5% IV SCH ×2 (11:15→12:30)
[2021-02-19] MEDS: NOREPINEPHRINE IV SCH ×2 (11:15→12:30)
--- NOTE | 2021-02-19 13:43 | NUR ---
MD and family notified of patient's passing away at 1335. Patient's heart rate prior to expiration was sinus won low 30's.
[2021-02-19] MEDS ORDERED: desmopressin 0.1mg/ml nasal spray 5ml btl NS SCH (17:00)
== END 2021-02-19 13:55 | DRG 871 ==
LOC: ER 12:39 → ED HOLD 15:37 → UNDOADMIN 15:37 → ED HOLD 15:47 → CMPBEDREQ 19:59 → CICU 2S 02-15 10:34
PROVIDERS: ADMIT Internal Medicine Critical Care Medicine; ATTEND Internal Medicine Critical Care Medicine
PROC: 5A09457 Assistance with Respiratory Ventilation, 24-96 Consecutive Hours, Continuous Positive Airway Pressure (ICD-10-PCS; 2021-02-14)
PROC: XW033E5 Introduction of Remdesivir Anti-infective into Peripheral Vein, Percutaneous Approach, New Technology Group 5 (ICD-10-PCS; principal; 2021-02-15)
PROC: 5A09357 Assistance with Respiratory Ventilation, Less than 24 Consecutive Hours, Continuous Positive Airway Pressure (ICD-10-PCS; 2021-02-16)
PROC: 02HV33Z Insertion of Infusion Device into Superior Vena Cava, Percutaneous Approach (ICD-10-PCS; 2021-02-16)
PROC: B548ZZA Ultrasonography of Superior Vena Cava, Guidance (ICD-10-PCS; 2021-02-16)
PROC: 5A09457 Assistance with Respiratory Ventilation, 24-96 Consecutive Hours, Continuous Positive Airway Pressure (ICD-10-PCS; 2021-02-17)
PROC: 5A12012 Performance of Cardiac Output, Single, Manual (ICD-10-PCS; 2021-02-19)
DX: A41.89 Other specified sepsis (principal); U07.1 COVID-19; J12.82 Pneumonia due to coronavirus disease 2019; I21.4 Non-ST elevation (NSTEMI) myocardial infarction; R65.21 Severe sepsis with septic shock; J96.01 Acute respiratory failure with hypoxia; N17.9 Acute kidney failure, unspecified; G93.40 Encephalopathy, unspecified; I50.9 Heart failure, unspecified; R33.9 Retention of urine, unspecified; S70.12XA Contusion of left thigh, initial encounter; X58.XXXA Exposure to other specified factors, initial encounter; I11.0 Hypertensive heart disease with heart failure; J45.909 Unspecified asthma, uncomplicated; I46.9 Cardiac arrest, cause unspecified; R00.1 Bradycardia, unspecified; I48.0 Paroxysmal atrial fibrillation; Z66 Do not resuscitate; E05.90 Thyrotoxicosis, unspecified without thyrotoxic crisis or storm; Z95.1 Presence of aortocoronary bypass graft; Z95.2 Presence of prosthetic heart valve; Y93.89 Activity, other specified; Y92.89 Other specified places as the place of occurrence of the external cause; Y99.8 Other external cause status; Z88.2 Allergy status to sulfonamides; Z79.899 Other long term (current) drug therapy
CPT/HCPCS: 36415; 36573; 36600; 71045; 76770; 80048; 80053; 81001; 82570; 82803; 82948; 83036; 83605; 83735; 83880; 84100; 84132; 84145; 84156; 84300; 84484; 85007; 85018; 85025; 85379; 85610; 85730; 86140; 87040; 87077; 87088; 87186; 87207; 87502; 87503; 87635; 92508; 92616; 92950; 93005; 93971; 94660; 94760; 97162; 97530; 99291; C9803; G0378; J0171; J0330; J0692; J1100; J1650; J1815; J1940; J2270; J2930; J3370; J3480; J3490; J7030; J7040; J7060